=== PATIENT | female | born 1975 | race Caucasian/White ===

== ENCOUNTER 2023-03-31 10:17 | Emergency (ER) | payer BC, SELFPAY ==
--- NOTE | ~2023-03-31 | XR_ITS ---
XR chest 2V DATE: 03/31/2023 11:26 INDICATION: Cough, congestion for 3 weeks TECHNIQUE: 2 views COMPARISON: None FINDINGS: Normal heart size. No hilar or mediastinal enlargement. No pulmonary infiltrate or consolid ation, pleural effusion or pulmonary vascular congestion or pneumothorax. Included skeletal structures are unremarkable. IMPRESSION: No active cardiopulmonary disease Reviewed, dictated and finalized at location L. OR SOLUTIONS ENGINEER
--- NOTE | 2023-03-31 10:24 | ED.EAR ---
HPI - Ear Problem General Chief complaint: Ear Stated complaint: Ear Pain Time Seen by Provider: 03/31/23 11:00 Source: patient and RN notes reviewed Mode of arrival: ambulatory Limitations: no limitations History of Present Illness HPI Narrative: 48-year-old female presents with concern for more than 1 month history of illness, reports cough, sinus congestion and pressure, ear pain and crackling. Reports on February 26 she was treated with doxycycline and prednisone. Reports her symptoms did not improve so she was put on Augmentin another round of prednisone with an albuterol inhaler. She took all those medications, she is using albuterol inhaler 2 to 3 times a day without relief. She continues to have productive cough, nasal congestion, sinus pressure, ear crackling. MD Complaint: ear pain Related Data Home Medications Medication Instructions Recorded Confirmed albuterol sulfate 90 mcg/actuation 2 inh inhalation DIRECTED 03/31/23 03/31/23 aerosol inhaler duloxetine 60 mg capsule,delayed 60 mg PO DAILY 03/31/23 03/31/23 release lisinopril 20 mg tablet 20 mg PO DAILY 03/31/23 03/31/23 Allergies Allergy/AdvReac Type Severity Reaction Status Date / Time codeine AdvReac Vomiting Verified 03/31/23 11:28 Review of Systems Review of Systems: CONSTITUTIONAL: Reports malaise. Denies chills, sweats, or fever. EYES: Denies visual changes, redness, or discharge. ENT: Reports rhinorrhea, congestion. Reports ear crackling CARDIOVASCULAR: Denies chest pain, palpitations, or edema. RESPIRATORY: Reports productive cough. Denies dyspnea. GASTROINTESTINAL: Denies abdominal pain, nausea, vomiting, diarrhea SKIN: Denies rash or itching. MUSCULOSKELETAL: Denies myalgia. NEUROLOGIC: Denies headache. All systems reviewed & are unremarkable except as noted in HPI and below PMFSH Comments At time of signature, agree with nursing past medical, surgical, social and family history. There is no relevant family history pertinent to the presenting complaint Exam Narrative: GENERAL: Well-appearing, well-nourished, and in no acute distress. HEAD: Normocephalic EYES: PERRLA, conjunctivae clear ENT: Nares clear, turbinates edematous, clear discharge. Mucous membranes moist. TM pearly lopez with dull light reflex bilaterally; no tragal tenderness. Oropharynx not erythematous without lesions. Tonsils not enlarged and without exudate, no drooling, no hoarseness, no trismus, uvula midline. NECK: Supple. No lymphadenopathy CHEST: Expiratory rhonchi noted, otherwise clear to auscultation, breath sounds equal. No rhonchi, rales, or stridor. No respiratory distress, speaks in full sentences. HEART: Regular rate and rhythm. No murmur heard. SKIN: Warm, dry, no rash. NEURO: Alert and oriented x3. PSYCH: Normal mood and affect Course Course Emergency Course: Patient has had symptoms ongoing for a month despite 2 rounds of antibiotics and steroids, her chest x-ray looks normal. I will try and as of her mycin, patient was instructed to follow-up with her primary care for further evaluation. Patient is aware of, understands and agrees to treatment plan. Anticipatory guidance given. Patient agrees to follow-up as directed and is aware of reasons to seek care at the emergency department. Portions of this record may have been created with voice recognition software Level of Care: Express Care Visit Vital Signs Vital signs: Vital Signs Temperature 98.1 F 03/31/23 10:27 Pulse Rate 84 03/31/23 10:27 Respiratory Rate 16 03/31/23 10:27 Blood Pressure 114/82 03/31/23 10:27 Pulse Oximetry 100 03/31/23 10:27 Temperature 98.1 F 03/31/23 10:27 Pulse Rate 84 03/31/23 10:27 Respiratory Rate 16 03/31/23 10:27 Blood Pressure 114/82 03/31/23 10:27 Pulse Oximetry 100 03/31/23 10:27 Reviewed. Medical Decision Making MDM Narrative Medical decision making narrative: Differential diagnosis considered: C
[2023-03-31 10:27] VITALS: BP 114/82; PULSE 84; RESP 16; TEMP 36.7; O2SAT 100
== END 2023-03-31 11:47 | disposition home or self-care (01) ==
PROVIDERS: Emergency Provider Nurse Practitioner
DX: J20.9 Acute bronchitis, unspecified (principal)
CPT/HCPCS: 71046; 99213; G0463

== ENCOUNTER 2024-12-13 13:18 | Outpatient (CLI) | payer BC, SELFPAY ==
[2024-12-13 13:59] LABS: Hematocrit 40.9 % (37.0-47.0); Hemoglobin 13.3 g/dL (12.0-15.0); Immature Granulocyte Percent A 0.5 % (0-0.5); Lymphocytes Absolute Auto 2.29 K/mm3 (0.9-3.2); Mean Corpuscular HGB Conc 32.5 g/dl (32-36); Mean Corpuscular Hemoglobin 30.7 pg (26-34); Mean Corpuscular Volume 94.5 fl (80-100); Nucleated Red Blood Cells Absolute Auto 0.000 K/mm3 (0.0-0.012); Nucleated Red Blood Cells Perc 0.0 % (0.0-0.2); Platelet Count Result 279 k/mm3 (150-375); Red Blood Count 4.33 M/mm3 (4.2-5.4); White Blood Count 6.2 K/mm3 (4.5-10.0)
[2024-12-13 14:29] LABS: Free T4 Free Thyroxine 1.20 ng/dL (0.78-2.19)
[2024-12-13 14:59] LABS: Alanine Aminotransferase 14 U/L (6-35); Albumin Level 4.5 g/dL (3.5-5.1); Alkaline Phosphatase 57 U/L (38-126); Anion Gap 6 mmol/L (4-12); Aspartate Amino Transferase 27 U/L (14-36); Bilirubin,Total 0.8 mg/dL (0.2-1.3); Blood Urea Nitrogen 16 mg/dL (7-17); Calcium 9.8 mg/dL (8.4-10.2); Carbon Dioxide 29 mmol/L (22-30); Chloride 99 mmol/L (98-107); Cholesterol 237 mg/dL (0-200); Estimated Glomerular Filt Rate > 60; Glucose 90 mg/dL (65-110); HDL Direct 58 mg/dL; Potassium 4.1 mmol/L (3.4-5.0); Sodium 134 mmol/L (137-145); Total Protein 7.7 g/dL (6.3-8.2); Triglycerides 195 mg/dL (<150)
[2024-12-13 15:15] LABS: Hemoglobin A1C 4.8 % (<5.7)
--- OUTSIDE RECORDS SUMMARY | 2024-12-13 15:16 | XMS_ITS | Clinical Summary ---
Author Organization [facility] Address [address] [place] [address] Care Team Providers Care Bar Finish Operator Name Role Phone Percy Adams DO Primary Care Provider [phone] Source Comments [facility],non-owned Affiliates and Associated Physician Practices is amultiple site organization consisting of ambulatory clinics and hospital sitesin [place], [place], [place] and [place]. This disclosure is being madepursuant to the Care Everywhere program and may not contain all information available regarding this patient. Last updated 17.[facility] Allergies Active Allergy Reactions Criticality Noted Date Comments Codeine Nausea and/or Vomiting 03/02/2013 Medications * Be aware that medications may not be up to date on this document. Alwaysverify current medications with the patient. lisinopril (PRINIVIL; ZESTRIL) 20 MG tablet TAKE 1 TABLET BY MOUTH EVERY DAY 30 tablet 4 05/26/2017 Active zolpidem (AMBIEN) 10 MG tablet 1 tablet at bedtime 30 tablet 2 06/02/2017 Active clonazePAM (KLONOPIN) 0.5 MG tablet Take 1 tablet by mouth at bedtime 90 tablet 1 06/02/2017 Active DULoxetine (CYMBALTA) 60 MG capsule 0 01/29/2018 Active amoxicillin (AMOXIL) 875 MG tablet Take 1 tablet by mouth 2 times daily 20 tablet 02/20/2018 Active Active Problems Problem Noted Date Diagnosed Date Dysuria 09/08/2017 Allergic rhinitis 09/11/2015 Essential hypertension 09/11/2015 Depression 12/07/2014 Anxiety 12/07/2014 Family History Medical History Relation Name Comments Hypertension Father Hypertension Mother Cancer - Breast Sister 1 reoccurance at 43 Cancer - Ovarian Sister 1 Cancer - Breast Sister 2 Relation Name Status Comments Father Mother Alive Sister 1 Sister 2 Social History Tobacco Use Types Packs/Day Years Used Date Smoking Tobacco: Never Smokeless Tobacco: Never Tobacco Cessation:Counseling Given: Yes Alcohol Use Standard Drinks/Week Comments Yes 0 (1 standard drink = 0.6 oz pur e alcohol) socially Comments No Sex and Gender Information Value Date Recorded Sex Assigned at Not on file Legal Sex Female 1:40 PM ORDER WORKER Gender Identity Not on file Sexual Orientation Not on file Last Filed Vital Signs Vital Sign Reading Time Taken Comments Blood Pressure 118/72 02/20/2018 12:46 PM ORDER WORKER Pulse 63 02/20/2018 12:46 PM ORDER WORKER Temperature 36.6 C (97.8 F) 02/20/2018 12:46 PM ORDER WORKER Respiratory Rate 18 02/20/2018 12:46 PM ORDER WORKER Oxygen Saturation 98% 02/20/2018 12:46 PM ORDER WORKER Inhaled Oxygen Concentration - - Weight 78.9 kg (174 lb) 02/20/2018 12:46 PM ORDER WORKER Height 172.7 cm (5' 8) 02/20/2018 12:46 PM ORDER WORKER Body Mass Index 26.46 02/20/2018 12:46 PM ORDER WORKER Plan of Treatment Health Maintenance Due Date Last Done Comments COLOGUARD (AGES 45-75) - COL ON CA SCREENING 1975 COLON MONITORING 1975 COLONOSCOPY - COLON CA SCREENING 1974 CT COLONOGRAPHY - COLON CA SCREENING 1975 Colorectal Cancer Screening 1974 FIT - COLON CA SCREENING 1974 FLEX SIG - COLON CA SCREENING 1974 HEPATITIS C SCREENING 01/27/1992 DTAP/TDAP/TD VACCINES (1 - Tdap) 1993 HEPATITIS B VACCINE (1 of 3 - 19+ 3-dose series) 1993 PAP SMEAR 1995 MAMMOGRAM 03/26/2019 03/26/2017, 05/04/2014, 02/28/2013 SCREENING FOR DIABETES 06/02/2020 8, 04/30/2016, 10/18/2015 LIPID TESTING 06/02/2022 06/02/2017 PNEUMOCOCCAL VACCINE 50+ (1 of 1 - PCV) 02/01/2024 ZOSTER VACCINE (1 of 2) 02/01/2024 DEPRESSION SCREENING 02/17/2024 COVID-19 VACCINE ( - 2023-2 5 season) 2024 INFLUENZA VACCINE (#1) 2024 HIV SCREENING Completed 10/18/2015 HIB VACCINE Aged Out No longer eligi ble based on patient's age to complete this topic HPV VACCINE Aged Out No longer eligi ble based on patient's age to complete this topic MENINGOCOCCAL (Group B) VACCINE SHARED DECISION-MAKING Aged Out No longer eligible based on patient's age to complete this topic MENINGOCOCCAL GROUPS A/C/Y/W VACCINE Aged Out No longer eligible b ased on patient's age to complete this topic Goals Goal Patient Goal Type Associated Problems Recent Progress Patient-Stated? Author Blood Pressure < 140/90 Blood Pressure 118/72(2018 12:46 PM ORDER WORKER) No Percy Adams, DO Decrease anxiety / depression / stress levels Lifestyle No Percy Adams, DO Procedures Procedure Name Priority Date/Time Associated Diagnosis Comments COMPREHENSIVE METABOLIC PANEL Routine 06/02/2017 8:38 AM CDT Routine general medical examination at a health care facility LIPID PROFILE Routine 06/02/2017 8:38 AM CDT Routine general medical examination at a health care facility MAMMO BILAT SCREENING Routine 03/26/2017 2:37 PM ORDER WORKER Sacral pain Anxiety HIV-1 HIV-2 ANTIBODY + HIV P24 AG PANEL Routine 10/18/2015 8:32 AM CDT Exposure to potentially hazardous body fluids from Last 3 Months or Most Recently Relevant to Health Maintenance Results * COMPREHENSIVE METABOLIC PANEL (06/02/2017 8:38 AM CDT) Sodium 137 136 - 145 mmol/L 06/02/2017 4:42 PM CDT [facility] Potassium 4.2 3.5 - 5.1 mmol/L 06/02/2017 4:42 PM CDT [facility] Chloride 102 98 - 107 mmol/L 06/02/2017 4:42 PM CDT [facility] CO2 25 22 - 29 mmol/L 06/02/2017 4:42 PM CDT [facility] Anion Gap 10 9 - 16 mmol/L 06/02/2017 4:42 PM CDT [facility] Glucose 98 70 - 105 mg/dL 06/02/2017 4:42 PM CDT [facility] BUN 12 9.8 - 20.1 mg/dL 06/02/2017 4:42 PM CDT [facility] Creatinine 0.96 0.57 - 1.11 mg/dL 06/02/2017 4:42 PM CDT [facility] BUN/Creatinine Ratio 12.5 11.2 - 18.1 06/02/2017 4:42 PM CDT [facility] Calcium 10.0 8.4 - 10.2 mg/dL 06/02/2017 4:42 PM CDT [facility] Protein Total 7.8 6.4 - 8.3 gm/dL 06/02/2017 4:42 PM CDT [facility] Albumin 4.7 3.5 - 5.0 gm/dL 06/02/2017 4:42 PM CDT [facility] ALT 10 0 - 55 U/L 06/02/2017 4:42 PM CDT [facility] AST 17 5 - 34 U/L 06/02/2017 4:42 PM CDT [facility] Alkaline Phosphatase 54 40 - 150 U/L 06/02/2017 4:42 PM CDT [facility] Bilirubin Total 0.9 0.2 - 1.2 mg/dL 06/02/2017 4:42 PM CDT [facility] Globulin Total 3.1 1.3 - 4.7 gm/dL 06/02/2017 4:42 PM CDT [facility] Albumin/Globulin Ratio 1.5 1.1 - 2.2 06/02/2017 4:42 PM CDT [facility] Osmolality Calculated 265 260 - 284 mOsm/kg 06/02/2017 4:42 PM CDT [facility] eGFR by MDRD >60 >60 mL/min/1.7 3m2 06/02/2017 4:42 PM CDT [facility] eGFR by MDRD >60 >60 mL/min/1.7 3m2 06/02/2017 4:42 PM CDT [facility] Blood BLOOD SPECIMEN / Unknown Venipuncture / Unknown 06/02/2017 8:38 AM CDT 06/02/2017 8:38 AM CDT Narrative [facility] - 06/02/2017 4:42 PM CDT ADA Comment: The [place] [employer] recommends a fasting glucose concentration of 99 mg/dL as the upper limit of normal. ADA Comment: The [place] [employer] recommends a fasting glucose concentration of 99 mg/dL as the upper limit of normal. Note:EGFR Reference Ranges have been established for adults between the ages of 18 and 70. STAGES OF CHRONIC KIDNEY DISEASE Stage Description EGFR 1. Kidney damage with normal or increased EGFR > or =90 mL/min/1.73 m 2. Kidney damage with mildly decreased EGFR 60-89 mL/min/1.73 m 3. Moderately decreased EGFR 30-59 mL/min/1.73 m 4. Severely decreased EGFR 15-29 mL/min/1.73 m 5. Kidney Failure EGFR <15 mL/min/1.73 m Percy Adams DO LAB - CHEMISTRY ORDERABLE S Final Result [facility] [address] [place] [address], [facility] [phone] * LIPID PROFILE (06/02/2017 8:38 AM CDT) [facility] Cholesterol 187 <200 mg/dL 06/02/2017 4:42 PM CDT [facility] Triglycerides 84 <150 mg/dL 06/02/2017 4:42 PM CDT [facility] VLDL Calculated 17 <31 mg/dL 8 4:42 PM CDT [facility] HDL Cholesterol 53 >40 mg/dL 8 4:42 PM CDT [facility] LDL Calculated 117 <160 mg/dL 06/02/2017 4:42 PM CDT [facility] Blood BLOOD SPECIMEN / Unknown Venipuncture / Unknown 06/02/2017 8:38 AM CDT 06/02/2017 8:38 AM CDT Narrative [facility] - 06/02/2017 4:42 PM CDT Lipid Profile Comment: *Risk Factors modify LDL Goals. Below is the desirable LDL goal for each combination of risk factors. 0-1 Risk Factor <160 mg/dL Multiple (2+) Risk Factors <130 mg/dL CHD or other forms of atherosclerosis <100 mg/dL Diabetes <100 mg/dL Note: This test is for fasting patients only. A non-fasting state may alter some of these results. us Percy G Angie DO LAB - CHEMISTRY ORDERABLE S Final Result [facility] [address] [id number], [facility] [phone] * MAMMO SCREENING DIGITAL IMAGE BILAT (03/26/2017 2:37 PM ORDER WORKER) Anatomical Region Laterality Modality Breast Bilateral Mammography 03/26/2017 3:56 PM ORDER WORKER Impressions 03/26/2017 4:02 PM ORDER WORKER 1. BI RADS 0: Incomplete; needs additional imaging evaluation. Circumscribed oval nodule in the medial anterior left breast which is new. Recommend spot compression views and ultrasound for further evaluation. 2. Strong family history. Breast MRI is recommended. Please note: The [place] [employer] has determined that screening mammograms are an important part of ongoing health care and has established screening guidelines. It is the patient's responsibility to supply information about the date and place of previous mammograms. Approximately 10% to 15% of breast cancers are not detected on mammograms. Therefore a negative mammogram should not preclude further workup of clinically suspicious findings. Narrative 03/26/2017 4:02 PM ORDER WORKER DIGITAL BILATERAL SCREENING MAMMOGRAM WITH 3D/TOMOGRAPHY AND CAD HISTORY: M53.3: Sacrococcygeal disorders, not elsewhere classified F41.9: Anxiety disorder, unspecified. 2 sisters with a history of breast cancer in one sister with a history of ovarian cancer. COMPARISON: 05/04/2014, 02/28/2013, 05/13/2012 FINDINGS: Digital direct 2D mammography and 3D tomography was obtained. Computer Aided Detection (CAD) was used in the interpretation of this study. The breasts are heterogeneously dense which may obscure small masses. Known fibroadenoma in the medial mid left breast. There is a circumscribed oval nodule in the medial anterior left breast which is new. Recommend spot compression views and ultrasound for further evaluation. No suspicious findings in the right breast. us Percy G Angie DO MAMMO ORDERABLES Final Re sult * HIV-1 HIV-2 ANTIBODY + HIV P24 AG PANEL (10/18/2015 8:32 AM CDT) HIV1/2 Ab + P24 Ag Non Reactive Non Reactive 10/19/2015 2:05 PM CDT [facility] Blood BLOOD SPECIMEN / Unknown 10/18/2015 8:32 AM CDT 10/18/2015 8:32 AM CDT Narrative [facility] - 10/19/2015 2:05 PM CDT HIV-1 p24 Ag and HIV-1/HIV-2 Ab not detected. us Courtney Haines HAND MITER OPERATOR-SALES INTERN LAB - CHEMISTRY STACIE CATHERINE Final Result [facility] [address], [place] [address] [phone] from Last 3 Months or Most Recently Relevant to Health Maintenance Insurance ANTHEM Care Teams Bar Finish Operator Relationship Specialty Start Date End Date Percy Adams DO PCP - General Family Medicine 11/21/14
[2024-12-13 15:39] LABS: Thyroid Stimulating Hormone 0.564 uIU/mL (0.465-4.680)
[2024-12-13 16:14] LABS: Vitamin B12 354.0 pg/mL (239-931)
[2024-12-17 11:08] LABS: Free Testosterone (Direct) 0.3 pg/mL (0.0-4.2)
== END 2024-12-13 13:19 | disposition home or self-care (01) ==
LOC: ANHLAB 13:19
PROVIDERS: PCP Internal Medicine; Visit Provider Internal Medicine
DX: R53.83 Other fatigue (principal); I10 Essential (primary) hypertension; R01.1 Cardiac murmur, unspecified; L65.9 Nonscarring hair loss, unspecified; T78.40XA Allergy, unspecified, initial encounter; F41.8 Other specified anxiety disorders; I34.1 Nonrheumatic mitral (valve) prolapse; Z68.25 Body mass index [BMI] 25.0-25.9, adult; Z86.0100 Personal history of colon polyps, unspecified
CPT/HCPCS: 36415; 80053; 80061; 82306; 82607; 82746; 83036; 84402; 84403; 84439; 84443; 85025

== ENCOUNTER 2024-12-28 08:22 | Outpatient (CLI) | payer BC, SELFPAY ==
--- OUTSIDE RECORDS SUMMARY | 2024-02-04 05:00 | XMS_ITS ---
Author Organization [facility] Address [address] [place] [id number] Care Team Providers Care Marine Animal Trainer Name Role Phone Chapo Kelly DO Primary Care Provider Windy Salter Unavailable [phone] Wilfred Blanco Unavailable [phone] REASON FOR VISIT annual Encounters Encounter Location Date Provider Diagnosis [facility] [address] [id number] 02/04/2024 Wilfred Blanco Plan Of Treatment Next Appt Details Provider Name:Wilfred Gunderson stella, 06/15/2025 01:00:00 PM, [address] [place] [address], [id number], Progress Notes * MARIANELA PRIETO DDOB:1974 (49 yo F)Acc No.[id number]:02/04/2024 UNLOCKED PROGRESS NOTE Patient: Matthew MARIANELA HOOD Provider: PIERCE Mckinney :1975 A ge:49 Y S ex:Female Date:02/04/2024 Address:[address] [place], [place] [id number] Pcp:Chapo Kelly DO Subjective: * Chief Complaints: * 1 . Annual. * Medical History: Objective: * Vitals: Assessment: Plan: * Treatment: * * * Electronic signature of PIERCE Feliz, [id number] on 12/28/2024 at 08:36 AM VIBRATOR OPERATOR Sign off status: Pending * Provider: PIERCE Mckinney Date: 04/06/2023 Generated for Sindhu gentile/Souleymane/Jose L on: 02/28/2024 08:36 AM VIBRATOR OPERATOR
--- OUTSIDE RECORDS SUMMARY | 2024-12-28 08:36 | XMS_ITS | Patient Health Record ---
Author Organization [facility] Address [address] [place] [address] Care Team Providers Care History Tutor Name Role Phone Chapo Kelly DO Primary Care Provider UnavailWindy Fischer Unavailable [phone] Anais Rudd Unavailable [phone] Wilfred Blanco Unavailable [phone] Allergies Allergen (clinical drug ingredient) Drug/Non Drug Allergy documented on EMR Reaction Allergy Type Onset Date Status codeine Codeine Unknown Drug Allergy Active Results Component Value Reference Range Notes MM MAMMO DIGITAL SCREEN - 77 063 Reviewed date:02/02/2024 10:53:16 AM Interpretation:BI-RADS 2: Benign Performing Lab: Notes/Report: FINAL RESULT [facility] RADIOLOGY DEPARTMENT [address] [place] [address]. [place], [place] PATIENT:IDAMARIANELA MARTEL DMR: [id number] PHYSICIAN:WILFRED PELAYO DATE PERFORMED: 02/02/24 : 1975 49/F DIGITAL BILATERAL SCREENING MAMMOGRAM WITH 3D/TOMOGRAPHY AND CAD COMPARISON: 10/16/2021. HISTORY: ENCOUNTER FOR GYNECOLOGICAL EXAMINATION (GENERAL) (ROUTINE) WITHOUT ABNORMAL FINDINGS. 2 sisters with a history of breast cancer at age 36 and 45. Bilateral implants in 2020. FINDINGS: Digital direct 2D mammography and 3D tomography was obtained. Computer Aided Detection (CAD) was used in the interpretation of this study. The breasts are heterogeneously dense, which may obscure small masses. No dominant mass. No suspicious microcalcifications or architectural distortion in the right breast. Post biopsies in the right and left breasts. No suspicious mass or architectural distortion in the left breast. IMPRESSION: 1. BI-RADS 2: Benign. 2. Recommend a screening mammography exam in one year. Please note: The [place] [employer] has determined that screening mammograms are an important part of ongoing health care and has established screening guidelines. It is the patient's responsibility to supply information about the date and place of previous mammograms. Approximately 10% to 15% of breast cancers are not detected on mammograms. Therefore a negative mammogram should not preclude further workup of clinically suspicious findings. Electronically signed by: Kaushik Arriaga MD02/02/2024 10:46 AM WS: [id number] MM MAMMO DIGITAL SCREEN FINAL RESULT MM MAMMO DIGITAL SCREEN [facility] MM MAMMO DIGITAL SCREEN RADIOLOGY DEPARTMENT MM MAMMO DIGITAL SCREEN [address] [facility]. MM MAMMO DIGITAL SCREEN [place], [place] MM MAMMO DIGITAL SCREEN MM MAMMO DIGITAL SCREEN MM MAMMO DIGITAL SCREEN PATIENT:MARIANELA PRIETO DMR: [id number] MM MAMMO DIGITAL SCREEN PHYSICIAN:WILFRED PELAYO DATE PERFORMED: 02/02/24 MM MAMMO DIGITAL SCREEN : 1975 49/F MM MAMMO DIGITAL SCREEN DIGITAL BILATERA L SCREENING MAMMOGRAM WITH 3D/TOMOGRAPHY AND CAD MM MAMMO DIGITAL SCREEN COMPARISON: 10/16/2021. MM MAMMO DIGITAL SCREEN HISTORY: ENCOUNT ER FOR GYNECOLOGICAL EXAMINATION (GENERAL) (ROUTINE) MM MAMMO DIGITAL SCREEN WITHOUT ABNORMAL FINDINGS. 2 sisters with a history of breast cancer at MM MAMMO DIGITAL SCREEN age 36 and 45. B ilateral implants in 2020. MM MAMMO DIGITAL SCREEN FINDINGS: Digita l direct 2D mammography and 3D tomography was obtained. MM MAMMO DIGITAL SCREEN Computer Aided D etection (CAD) was used in the interpretation of this MM MAMMO DIGITAL SCREEN study. The breas ts are heterogeneously dense, which may obscure small MM MAMMO DIGITAL SCREEN masses. No domin ant mass. No suspicious microcalcifications or MM MAMMO DIGITAL SCREEN architectural di stortion in the right breast. Post biopsies in the right MM MAMMO DIGITAL SCREEN and left breasts . No suspicious mass or architectural distortion in the MM MAMMO DIGITAL SCREEN left breast. MM MAMMO DIGITAL SCREEN IMPRESSION: MM MAMMO DIGITAL SCREEN 1. BI-RADS 2: Benign. MM MAMMO DIGITAL SCREEN 2. Recommend a s creening mammography exam in one year. MM MAMMO DIGITAL SCREEN Please note: The [place] [employer] has determined that screening MM MAMMO DIGITAL SCREEN mammograms are a n important part of ongoing health care and has MM MAMMO DIGITAL SCREEN established scre ening guidelines. It is the patient's responsibility to MM MAMMO DIGITAL SCREEN supply informati on about the date and place of previous mammograms. MM MAMMO DIGITAL SCREEN Approximately 10 % to 15% of breast cancers are not detected on MM MAMMO DIGITAL SCREEN mammograms. Ther efore a negative mammogram should not preclude further MM MAMMO DIGITAL SCREEN workup of clinic ally suspicious findings. MM MAMMO DIGITAL SCREEN Electronically s igned by: Kaushik Arriaga MD02/02/2024 10:46 AM MM MAMMO DIGITAL SCREEN WS: [id number] PAP AND HPV mRNA E6-E7 (THIN PREP) Reviewed date:06/17/2024 11:26:20 AM Interpretation:Pap Smear- Negative; HPV- Not Detected Performing Lab: Notes/Report: [facility] performed at[facility], [address] [place] [address], [id number], Cream Buyer: JASMINE RUABLCAVA MD HPV mRNA E6/E7 Not Detected Not Detected Methodology: Paper Pattern Inspector-Mediat ed Amplification This assay detects E6/E7 viral messenger RNA (mRNA) from 14 high-risk HPV types (16,18,31,33,35,39,4 5,51,52,56,58,59,66, 68). Cervical sources are required for HPV testing. If a vaginal source from a patient who has had a total hysterectomy with removal of cervix was submitted, please contact the testing laboratory for alternative testing options. For additional information, please refer to [email or web address].Ideal Me/fa [email or web address] (This link if provided for information/ educational purposes only.) SOURCE: SEE NOTE None given CLINICAL INFORMATION: SEE NOTE None g iven LMP: SEE NOTE NONE GIVEN PREV. PAP: SEE NOTE NONE GIVEN PREV. BX: SEE NOTE NONE GIVEN STATEMENT OF ADEQUACY: SEE NOTE Satisfactory for evaluation. Endocervical/transfo rmation zone component present. Age and/or menstrual status not provided INTERPRETATION/RESULT: SEE NOTE Cytology Results: Negative for intraepithelial lesion or malignancy. COMMENT: SEE NOTE This Pap test has been evaluated with computer assisted technology. CONSTRUCTION CONTRACTOR: SEE NOTE TMK, CT(ASCP) CT screening location: [place] [address] [place] [address] SEE NOTE EXPLANATORY NOTE: The Pap is a screening test for cervical cancer. It is not a diagnostic test and is subject to false negative and false positive results. It is most reliable when a satisfactory sample, regularly obtained, is submitted with relevant clinical findings and history, and when the Pap result is evaluated along with historic and current clinical information. Reason For Referral No Information Medications Medication SIG (Take, Route, Fr equency, Duration) Notes Start Date End Date Status DULoxetine HCl 60 MG 1 Oral daily; Duration: 90 days Active Lisinopril 20 MG 1 tablet Oral daily; Duration: 90 days Active Immunizations Vaccine Route Administration Date Status Comme nts *Influenza Vac 4 Valent Pres Free (Flulaval) IM Intramuscular 11/04/2021 Administered Influenza, injectable, quadrivalent IM Intramuscular 02/07/2014 Administered Patient tolerated well with no reaction noted while in the office. Band-aid applied to site. Instructed patient to follow up with any concerns. influenza, injectable, quadrivalent, preservative free OTH Other/Miscellaneou s 01/03/2020 Not Administered NotGiven Reason : Declined by Patient/Guardi an Social History Tobacco Use: Social History Observation Description Date Details (start date - stop date) Never Smoker NA - NA Tobacco Use/Smoking Question Answer Notes Are you a: never smoker Tobacco use other than smoking: Question Answer Notes Are you an other tobacco user? No Problems Problem Type SNOMED Code ICD Code Onset Dates Problem Status W/U Status Risk Notes Problem Melanocytic nevus of trunk (disorder) (647824346) Melanocytic nevi of trunk (D22.5) Active confirmed Multiple pi nk uniform papules on back and abdomen Problem Mixed hyperlipidemia (428660055) Mixed hyperlipidemia (E78.2) Active confirmed Problem Abdominal aortic aneurysm without rupture (20479939) Abdominal aortic aneurysm, without rupture (I71.4) Active confirmed Problem Mild cervical dysplasia (293041662) Mild cervical dysplasia (N87.0) Active confirmed Problem Amnesia (77607269) MEMORY CHANGES (R41.3) Active confirmed Problem Menstrual problem (680920785) ABNORMAL MENSES (N92.6) Active confirmed Problem Cervical intraepithelial neoplasia grade 2 (396709937) MARIBEL II (CERVICAL INTRAEPITHELIAL NEOPLASIA II) (N87.1) Active confirmed Problem Tinnitus of left ear (4914745977777) RINGING IN EAR, LEFT (H93.12) Active confirmed Problem Cervical high risk HPV (human papillomavirus) test positive (241548693) CERVICAL HIGH RISK HPV (HUMAN PAPILLOMAVIRUS) TEST POSITIVE (R87.810) Active confirmed Problem Conductive hearing loss of left ear with normal hearing on right side (disorder) (7667703763) CONDUCTIVE HEARING LOSS OF LEFT EAR WITH UNRESTRICTED HEARING OF RIGHT EAR (H90.12) Active confirmed Problem Lesion of nose (553370874) LESION OF NOSE (J34.89) Active confirmed 2mm pink papule nasal tip Problem Multiple seborrheic keratoses (640672230) SEBORRHEIC KERATOSES (L82.1) Active confirmed Left thigh and right arm Problem Disorder of ear (disorder) (61937630) SENSATION OF FULLNESS IN BOTH EARS (H93.8X3) Active confirmed Problem H/O stapedectomy (Z90.09) Active confirmed Problem Allergic rhinitis (12581842) Other allergic rhinitis (J30.89) Inactive confirmed Problem Cough (92909037) Cough (R05) Inactive confirmed Problem Screening for cardiovascular system disease (167210995) Encounter for screening for cardiovascular disorders (Z13.6) Inactive confirmed Problem Counseling (282118800) ENCOUNTER FOR EDUCATION (Z71.9) Inactive confirmed Problem Annual health maintenance examination (21115865) ANNUAL PHYSICAL EXAM (Z00.00) Inactive confirmed Problem Sore throat (778108849) SORE THROAT (J02.9) Inactive confirmed Problem Menopause (911557753) HOT FLASHES (N95.1) Inactive confirmed Problem Urinary tract infectious disease (47150363) INFECTION OF URINARY TRACT (N39.0) Inactive confirmed Description:U RINARY TRACT INFECTION Problem Papule (07005238) PAPULE (R23.8) Inactive confir med Comment:2 mm benign appearing papule of right nasal tip., Problem Non-smoker (6229256) NON-SMOKER (Z78.9) Inactive confirmed Problem Skin lesion (79631944) SKIN LESION (L98.9) Inactive confirmed Comment:educa tion given regarding condition questions answered in full will call back to the office if any more should arise appt with derm plastics and set up, Problem Acute maxillary sinusitis (37263499) SINUSITIS, ACUTE, MAXILLARY (J01.00) Inactive confirmed Comment:rx given rechk in 7-10 d or prn any change in symptoms rtc or go to the er education regarding meds and dx given all questions answered in full. will call back to office if any more should arise., Problem Generalized aches and pains (47336991) BODY ACHES (R52) Inactive confirmed Problem Weight gain (016798167) WEIGHT GAIN (R63.5) Inactive confirmed Description:W EIGHT GAIN Problem Lung infection (174128105) LUNG INFECTION (J18.9) Inactive confirmed Problem Overweight (391520607) BODY MASS INDEX (BMI) OF 25.0 TO 29.9 (278.02) Inactive confirmed Description:O VERWEIGHT (BMI 25.0-29.9) Problem Benign neoplasm of skin of cheek (48431566) BENIGN NEOPLASM OF SKIN OF CHEEK (D23.39) Inactive confirmed Problem Fatigue (77789928) FATIGUE (R53.83) Inactive confirmed Problem Acute upper respiratory infection (31065292) ACUTE UPPER RESPIRATORY INFECTION (J06.9) Inactive confirmed Problem Dietary management surveillance (355934123) ENCOUNTER FOR DIETARY COUNSELING AND SURVEILLANCE (Z71.3) Inactive confirmed Comment:Discu ssed with patient the importance of weight loss, and achieving a healthy weight. Reviewed ways to set realistic goals, manage portion sizes, decrease caloric intake, increase physical activity and encouraged them to monitor their weight on a regular basis.,Descri ption:DIETARY COUNSELING Problem Nodule of skin of breast (467339264) BREAST NODULE (N63.0) Inactive confirmed Problem Upper respiratory infection (54773280) URI (UPPER RESPIRATORY INFECTION) (J06.9) Inactive confirmed Comment:rest fluids discussed meds cont otc allegy med and flonase return if symptoms do not resolve or worsen, Problem Acute tonsillitis (52921868) TONSILLITIS WITH EXUDATE (J03.90) Inactive confirmed Problem Depressed (77013491) DEPRESSED (F32.9) Inactive confirmed Comment:rx given rechk in 3-4 weeks or prn , any change in symptoms rtc or go to the er. Education regarding meds and dx given , all questions answered in full , will call back to office if any more should arise Pt counseled extensively regarding treatment for condition., Problem Gynecological examination normal (499520562732746) ENCOUNTER FOR GYNECOLOGICAL EXAMINATION WITHOUT ABNORMAL FINDING (Z01.419) Inactive confirmed Problem Breast screening requested (016653511) BREAST SCREENING (Z12.39) Inactive confirmed Problem Dysuria (92788868) PAINFUL URINATION (788.1) (788.1) Inactive confirmed Problem Hypertension (14390694) HTN (HYPERTENSION) (I10) Inactive confirmed Comment:rx given rechk in 3 months or prn , any change in symptoms rtc or go to the er. Education regarding meds and dx given , all questions answered in full , will call back to office if any more should arise, Problem Otitis media (78438216) ACUTE OTITIS MEDIA, BILATERAL (H66.93) Inactive confirmed Comment:rx given rechk in 7-10 d or prn any change in symptoms rtc or go to the er education regarding meds and dx given all questions answered in full. will call back to office if any more should arise., Problem Neoplasm of skin of cheek (454975352) NEOPLASM OF SKIN OF CHEEK (D49.2) Inactive confirmed Comment:This could be an actinic keratosis. I discussed shave biopsy with her and she understood the risk of a scar. Using aseptic technique, I infiltrated the lesion with 0.3 mL of lidocaine 1% with 1 100,000 epinephrine. I shaved lesion with a 15 blade and sent this to pathology. I obtain hemostasis with a Drysol soaked Q-tip. A Band-Aid was applied. We will obtain the pathology report and proceed accordingly., Story:Left cheek scaly macule, Problem Chill (50227942) CHILL (R68.83) Inactive confirm ed Description:Justo TOMLIN Problem Throat pain (122772678) THROAT PAIN (R07.0) Inactive confirmed Problem Chills and fever (320584039) FEVER AND CHILLS (R50.9) Inactive confirmed Problem Disorder of skin AND/OR subcutaneous tissue (24540044) BENIGN SKIN LESION OF FACE (L98.9) Inactive confirmed Comment:After obtaining informed consent, the lesion was removed without difficulty. She is to clean the area with 1/2 peroxide and water BID, then apply Bacitracin ointment after each cleaning. Return in one week for suture removal., Problem Bronchitis (14585433) BRONCHITIS (J40) Inactive confirmed Problem Insomnia (547366265) INSOMNIA (G47.00) Inactive confirmed Comment:rx given rechk in 3-4 weeks or prn , any change in symptoms rtc or go to the er. Education regarding meds and dx given , all questions answered in full , will call back to office if any more should arise, Problem Pain in sacrum (finding) (7239279565) SACRAL PAIN (M53.3) Inactive confirmed Problem Anxiety (78043972) ANXIETY (F41.9) Inactive confirmed Problem Back pain (842929724) BACK PAIN (M54.9) Inactive confirmed Problem Scar conditions and fibrosis of skin (646841865) SCAR OF CHEEK (L90.5) Inactive confirmed Comment:I do not recommend revision.,Sto ry:Well healed scar of left lower cheek., Problem Mixed anxiety and depressive disorder (167643532) ANXIETY AND DEPRESSION (F41.9) Inactive confirmed Comment:rx given rechk in 3-4 weeks or prn , any change in symptoms rtc or go to the er. Education regarding meds and dx given , all questions answered in full , will call back to office if any more should arise, Problem Productive cough (86829500) PRODUCTIVE COUGH (R05) Inactive confirmed Problem Acute frontal sinusitis (24040507) ACUTE FRONTAL SINUSITIS (J01.10) Inactive confirmed Problem ABNORMAL FINDING ON URINALYSIS (791.9) (791.9) Inactive confirmed Problem Plain X-ray of chest abnormal (finding) (1719061893) ABNORMAL CHEST XRAY (R93.89) Inactive confirmed Problem Current non smoker but past smoking history unknown (finding) (342522296) CURRENT NON-SMOKER (Z78.9) Inactive confirmed Problem Gynecological examination normal (558237413460087) ENCOUNTER FOR ROUTINE GYNECOLOGICAL EXAMINATION (Z01.419) Inactive confirmed Problem Back ache (558359864) BACK ACHE (M54.9) Inactive confirmed Description:B ACK PAIN Problem Bacterial vaginitis (787429136) BACTERIAL VAGINITIS (N76.0) Inactive confirmed Comment:Patie nt is prone to yeast infections with antibiotic use., Problem YEAST INFECTION (117.9) (117.9) Inactive confirmed Comment:pt reports that she gets yeast infections with antibiotics and since this is her second one in 1-2 weeks she would like coverage, Problem Requires vaccination (619072447) NEED FOR IMMUNIZATION AGAINST INFLUENZA (Z23) Inactive confirmed Description: 3 YRS AND OLDER - FLUZONE QUADRIVALENT - [employer] SUPPLY W/ CAREGIVER COUNSELING Problem Allergic rhinitis (17681023) ALLERGIC RHINITIS (J30.9) Inactive confirmed Problem Venereal disease screening (760599891) SCREEN FOR STD (SEXUALLY TRANSMITTED DISEASE) (Z11.3) Inactive confirmed Comment:Bhumika or history of Chlaymia- patient requesting testing to reassure it was treated and gone., Problem Screening for malignant neoplasm of breast (132197337) BREAST CANCER SCREENING, HIGH RISK PATIENT (Z12.39) Inactive confirmed Comment:I discussed with the patient her increased risk for breast cancer based on her FH of at least one / two first degree relatives with breast cancer and her sisters unknown BRCA1 & 2 status. I will call her oncologist regarding this issue. I think the patient has an increased risk for breast and ovarian cancer and to have the BRCA mutation and I would like to have her tested. She has two boys and I explained her that BRCA mutations increase the incidence of male breast cancer and early onset aggressive prostate cancer in men. She is due for her six months mammogram and I will touch base with her regarding her sister's test and her test. She will return to my office after her mammogram and / or test for her follow up or sooner if new symptoms or complains arise.,Story: Sister with breast cancer at age 36 Mother with B/L mastectomies (breast cancer?) at age 44 Index Case (sister) unclear BRCA 1&2 status Mammograms every six months. Multiple breast biopsies with fibroadenoma, Problem Neoplasm of skin (410030962) NEOPLASM OF SKIN (D49.2) Inactive confirmed Comment:This could be a non melanoma skin cancer. I recommend excisional biopsy.,Story :[place] papule of left upper breast, Problem Streptococcal sore throat (22635339) STREP TONSILLITIS (J03.00) Inactive confirmed Comment:rx given rechk in 7-10 d or prn any change in symptoms rtc or go to the er education regarding meds and dx given all questions answered in full. will call back to office if any more should arise., Vital Signs Blood pressure diastolic 80 mm Hg 06/14/2024 Weight-kg 77.11 kg 06/14/2024 Height 68.00 in 06/14/2024 Blood pressure systolic 128 mm Hg 06/14/2024 Weight 170 lbs 06/14/2024 BMI 25.85 kg/m2 06/14/2024 Encounters Encounter Location Date Provider Diagnosis [facility] [address] [id number] 06/14/2024 [facility] Encounter for gynecological examination (general) (routine) without abnormal findings Z01.419 and HISTORY OF ABNORMAL PAP SMEAR Z87.42 [facility] Mammo Dept [address] [place] [id number] 02/02/2024 [facility] Encounter for gynecological examination (general) (routine) without abnormal findings Z01.419 [facility] Dermatology [address] [place] [id number] 06/14/2024 Anaisapolonia Rudd [place]ENTIGO L81.4 ; ANGIOMA OF SKIN D18.01 and NEVUS OF BACK D22.5 Assessments Encounter Date Diagnosis (ICD Code) Assessment Notes Treatment Notes Treatment Clinical Notes Section Notes 02/02/2024 Encounter for gynecological examination (general) (routine) without abnormal findings (ICD-10 - Z01.419) 06/14/2024 Encounter for gynecological examination (general) (routine) without abnormal findings (ICD-10 - Z01.419) 06/14/2024 HISTORY OF ABNORMAL PAP SMEAR (ICD-10 - Z87.42) 06/14/2024 LENTIGO (ICD-10 - L81.4) R arm. benign lesion. will observe for now. 06/14/2024 ANGIOMA OF SKIN (ICD-10 - D18.01) 06/14/2024 NEVUS OF BACK (ICD-10 - D22.5) benign lesion. will observe for now. Provided education on the ABCDE of Melanoma. A is for Asymmetry. B is for Border. C is for Color. D is for Diameter or Dark. E is for Evolving. If the patient notices these warning signs, or anything NEW CHANGING or UNUSUAL they are to see a maintenance machinist promptly. Plan Of Treatment Pending Test Test Name Order Date POC: Urine Test, HCG 2 POC: Urine Test, HCG 3 POC: Urine Test, HCG 3 Pathology Specimen 04/03/2022 Future Test Test Name Order Date MM MAMMO DIGITAL SCREEN - [id number] 06/15/19 25 Next Appt Details Provider Name:Wilfred Gunderson sarikarick, 06/15/2025 01:00:00 PM, [address] [place], [place], [id number], Insurance Providers Payer Name Payer Address Payer Phone Subscriber Number Group Number Insured Name Patient Relationship to Insured Coverage Start Date Coverage End Date [employer] [employer] [address] [place] [phone] [id number] MARIANELA PRIETO Self - patient is the insured [address] [facility] [address] [place] [address] [id number] Self - patient is the insured [employer] [address] [place] [address] [id number] MARIANELA ENGLE Other 6 [employer] [address] [place] [address] [phone] [id number] RONNY PRIETOT Self - patient is the insured 0 Medical (General) History Medical History History ICD Code ANXIETY, Asthma Depression HOT FLASHES HTN (HYPERTENSION) INSOMNIA ABNORMAL PAP/POS HPV Surgical History Surgery Date(Month/Year) Face lift Breast Augmentation Tummy Zack 2019-02-16 Tubal Ligation 2009-02-16 Ear surgery 2006-02-16 Breast Lift, 2018-02-16 Breast Biopsy,
--- OUTSIDE RECORDS SUMMARY | 2024-12-28 08:36 | XMS_ITS | Clinical Summary ---
Author Organization [facility] Address [address] [place] [address] Care Team Providers Care Char [employer] T[employer] C[employer] Name Role Phone Percy Adams DO Primary Care Provider [phone] Source Comments [facility],non-owned Affiliates and Associated Physician Practices is amultiple site organization consisting of ambulatory clinics and hospital sitesin [place], [place], [place] and [place]. This disclosure is being madepursuant to the Care Everywhere program and may not contain all information available regarding this patient. Last updated 17.[facility] Allergies Active Allergy Reactions Criticality Noted Date [...] on file Legal Sex Female 1:40 PM ART SALES CONSULTANT Gender Identity Not on file Sexual Orientation Not on file Last Filed Vital Signs Vital Sign Reading Time Taken Comments Blood Pressure 118/72 02/20/2018 12:46 PM ART SALES CONSULTANT Pulse 63 02/20/2018 12:46 PM ART SALES CONSULTANT Temperature 36.6 C (97.8 F) 02/20/2018 12:46 PM ART SALES CONSULTANT Respiratory Rate 18 02/20/2018 12:46 PM ART SALES CONSULTANT Oxygen Saturation 98% 02/20/2018 12:46 PM ART SALES CONSULTANT Inhaled Oxygen Concentration - - Weight 78.9 kg (174 lb) 02/20/2018 12:46 PM ART SALES CONSULTANT Height 172.7 cm (5' 8) 02/20/2018 12:46 PM ART SALES CONSULTANT Body Mass Index 26.46 02/20/2018 12:46 PM ART SALES CONSULTANT Plan of Treatment Health Maintenance Due Date [...] < 140/90 Blood Pressure 118/72(2018 12:46 PM ART SALES CONSULTANT) No Percy Adams, DO Decrease anxiety / [...] MAMMO BILAT SCREENING Routine 03/26/2017 2:37 PM ART SALES CONSULTANT Sacral pain Anxiety HIV-1 HIV-2 ANTIBODY + HIV P24 AG PANEL Routine 10/18/2015 8:32 AM CDT Exposure to potentially hazardous body fluids from Last 3 Months or Most Recently Relevant to Health Maintenance Results * COMPREHENSIVE METABOLIC PANEL (06/02/2017 8:38 AM CDT) Sodium 137 136 - 145 mmol/L 06/02/2017 4:42 PM CDT [facility] Potassium 4.2 3.5 - 5.1 mmol/L 06/02/2017 4:42 PM CDT [facility] Chloride 102 98 - 107 mmol/L 06/02/2017 4:42 PM CDT [facility] CO2 25 22 - 29 [...] 06/02/2017 4:42 PM CDT ADA Comment: The [place] [employer] recommends a fasting glucose concentration of 99 mg/dL as the upper limit of normal. ADA Comment: The [place] [employer] recommends a fasting glucose concentration [...] LAB - CHEMISTRY ORDERABLE S Final Result [facility] [address] [place] [address], [facility] [phone] * LIPID PROFILE (06/02/2017 8:38 AM CDT) [facility] Cholesterol 187 <200 mg/dL 06/02/2017 4:42 PM CDT [facility] Triglycerides 84 <150 mg/dL 06/02/2017 4:42 PM CDT [facility] VLDL Calculated 17 <31 mg/dL 8 4:42 PM CDT [facility] HDL Cholesterol 53 >40 mg/dL 8 4:42 PM CDT [facility] LDL Calculated 117 <160 mg/dL 06/02/2017 4:42 PM CDT [facility] Blood BLOOD SPECIMEN / Unknown Venipuncture / Unknown 06/02/2017 8:38 AM CDT 06/02/2017 8:38 AM CDT Narrative [facility] - 06/02/2017 4:42 PM CDT [...] CHEMISTRY ORDERABLE S Final Result [facility] [address] [id number], [facility] [phone] * MAMMO SCREENING DIGITAL IMAGE BILAT (03/26/2017 2:37 PM ART SALES CONSULTANT) Anatomical Region Laterality Modality Breast Bilateral Mammography 03/26/2017 3:56 PM ART SALES CONSULTANT Impressions 03/26/2017 4:02 PM ART SALES CONSULTANT 1. BI RADS 0: Incomplete; needs additional imaging evaluation. Circumscribed oval nodule in the medial anterior left breast which is new. Recommend spot compression views and ultrasound for further evaluation. 2. Strong family history. Breast MRI is recommended. Please note: The [place] [employer] has determined that screening mammograms [...] clinically suspicious findings. Narrative 03/26/2017 4:02 PM ART SALES CONSULTANT DIGITAL BILATERAL SCREENING MAMMOGRAM WITH 3D/TOMOGRAPHY AND [...] HIV-1/HIV-2 Ab not detected. us Courtney Haines PEDIATRIC NEUROPSYCHOLOGIST-PRODUCTION PROOFREADER LAB - CHEMISTRY STACIE CATHERINE Final Result [facility] [address], [place] [address] [phone] from Last 3 Months or Most Recently Relevant to Health Maintenance Insurance ANTHEM Care Teams Char Con[employer] T[employer] Cellar Relationship Specialty Start Date End Date Percy Adams DO PCP - General Family Medicine 11/21/14
== END 2024-12-28 08:23 | disposition home or self-care (01) ==
LOC: ANHAUDASC 08:23
PROVIDERS: PCP Internal Medicine; Visit Provider Internal Medicine
DX: H90.12 Conductive hearing loss, unilateral, left ear, with unrestricted hearing on the contralateral side (principal); H93.13 Tinnitus, bilateral
CPT/HCPCS: 92557; 92567